=== PATIENT | female | born 1985 | race Caucasian/White ===

== ENCOUNTER 2019-09-20 16:47 | Emergency (ER) | payer MEDICAID ==
[~2019-09-20] VITALS: Ht 152.4 cm; Wt 55.8 kg
[2019-09-20 16:58] VITALS: BP_SYST 108
--- NOTE | 2019-09-20 17:47 | NUR ---
Patient to ER bed 03 to gown for evaluation. Side rails up.
--- NOTE | 2019-09-20 17:47 | NUR ---
Grey simmons in [facility] - 09/20/19 at 1747 by [email or web address] Patient to [place] [id number] to constantine for evaluation. Side rails up.
--- NOTE | 2019-09-20 18:20 | NUR ---
ER at bedside examining patient.
[2019-09-20] MEDS ORDERED: ONDANSETRON HCL 4 MG/2 ML VIAL IVP ONE (18:30)
[2019-09-20] MEDS ORDERED: KETOROLAC TROMETHAMINE 30 MG VIAL IVP ONE (18:30)
[2019-09-20 18:39] LABS: BASOPHILS # (AUTO) 0.1 K/uL (0.0-0.2); BASOPHILS % (AUTO) 0.4 % (0.0-2.0); EOSINOPHILS % (AUTO) 0.1 % (0.0-4.0); HEMATOCRIT 31.9 % (36-48); HEMOGLOBIN 10.1 g/dL (12.0-16.0); LYMPHOCYTES # (AUTO) 1.5 K/uL (1.0-5.5); LYMPHOCYTES % (AUTO) 9.5 % (20.5-51.5); MEAN CORPUSCULAR HEMOGLOBIN 22 pg (27-31); MEAN CORPUSCULAR HGB CONC 32 % (32-36); MEAN CORPUSCULAR VOLUME 71 fL (79.0-98.0); MONOCYTES # (AUTO) 0.4 K/uL (0.0-1.0); MONOCYTES % (AUTO) 2.7 % (1.7-9.3); NEUTROPHILS # (AUTO) 13.4 K/uL (1.8-7.7); NEUTROPHILS % (AUTO) 87.3 % (40.0-70.0); RED BLOOD CELL COUNT(AUTO) 4.51 MIL/uL (4.2-6.2); RED CELL DISTRIBUTION WIDTH 17.6 % (9.0-15.0); WHITE BLOOD COUNT (AUTO) 15.4 K/uL (4.8-10.8)
--- NOTE | 2019-09-20 18:40 | NUR ---
# 20 gauge angiocath placed to laC. Use of asceptic technique. Opsite placed over site. Blood return noted. Blood for lab drawn from site. Flushed with 10 cc of normal saline. No evidence of infiltration noted. Patient tolerated well.
[2019-09-20 18:47] LABS: CALCIUM 8.3 mg/dL (8.4-11.0); CREATININE 0.5 mg/dL (0.55-1.30)
[2019-09-20 18:53] LABS: ALBUMIN 3.4 g/dL (3.4-4.8); TOTAL BILIRUBIN 1.1 mg/dL (0.0-1.0)
--- NOTE | 2019-09-20 18:55 | NUR ---
MEDICATED THE PT W/ TORADOL AND ZOFRAN PER MD ORDER. WILL REASSESS
[2019-09-20 18:57] LABS: POTASSIUM 2.9 mmol/L (3.5-5.1)
[2019-09-20] MEDS ORDERED: POTASSIUM CHLORIDE 20 MEQ TAB.PRT.SR PO ONE (19:00)
[2019-09-20] MEDS ORDERED: NACL 0.9% 1,000 ML IV ONE (19:00)
[2019-09-20 19:13] LABS: PLATELET COUNT (AUTO) 510 K/uL (130-430)
--- NOTE | 2019-09-20 19:15 | NUR ---
CURRENTLY INFUSING ns 1L PER md ORDER.
--- NOTE | 2019-09-20 19:20 | NUR ---
CARE ENDORSED TO ISATU COURTNEY.
--- NOTE | 2019-09-20 19:22 | NUR ---
kDUR 40MeQ GIVEN FOR k OF 2.9
--- NOTE | 2019-09-20 20:15 | NUR ---
Pt BIB family to ED C/O gradual onset, intermittent vomiting. This morning, symptoms were associated with nonbloody diarrhea and mild RUQ abdominal pain. Patient is not able to keep PO intake down VSS no s/s of acute distress Resting on gurney rails up
[2019-09-20 20:30] VITALS: BP_SYST 108
--- NOTE | 2019-09-20 20:30 | NUR ---
Patient given written and verbal discharge instructions and verbalizes understanding. ER MD discussed with patient the results and treatment provided. Patient in stable condition. ID arm band removed. IV catheter removed intact and dressing applied, no active bleeding. Rx of Zofran, Lomotil given. Patient educated on pain management and to follow up with PMD. Pain Scale 0/10 Opportunity for questions provided and answered. Medication side effect fact sheet provided.
== END 2019-09-20 20:30 | disposition home or self-care (01) ==
LOC: SED 16:47
DX: R10.11 Right upper quadrant pain (principal); E87.6 Hypokalemia; R11.10 Vomiting, unspecified; R19.7 Diarrhea, unspecified; Z98.51 Tubal ligation status
CPT/HCPCS: 36415; 80053; 83690; 85025; 96361; 96374; 96375; 99283; J1885; J2405; J7030

== ENCOUNTER 2020-02-14 14:35 | Emergency (ER) | payer OTHER, MEDICAID ==
[~2020-02-14] VITALS: Ht 152.4 cm; Wt 58.1 kg
[2020-02-14 15:01] VITALS: BP_SYST 110
--- NOTE | 2020-02-14 15:07 | NUR ---
Patient to ER bed 2 to gown for evaluation. Side rails up. Report given to ROZ Amezcua.
--- NOTE | 2020-02-14 15:15 | NUR ---
ER at bedside examining patient.
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
[2020-02-14] MEDS ORDERED: KETOROLAC TROMETHAMINE 60 MG/2 ML VIAL IM ONE (16:00)
--- NOTE | 2020-02-14 16:00 | NUR ---
Medicated the pt w/ Toradol. Will reassess
[2020-02-14 16:04] VITALS: BP_SYST 110
--- NOTE | 2020-02-14 16:07 | NUR ---
Patient given written and verbal discharge instructions and verbalizes understanding. ER MD discussed with patient the results and treatment provided. Patient in stable condition. ID arm band removed. Rx of Motrin given. Patient educated on pain management and to follow up with PMD. Pain Scale 3/10. Opportunity for questions provided and answered. Medication side effect fact sheet provided.
== END 2020-02-14 16:04 | disposition home or self-care (01) ==
LOC: SED 14:35
DX: R51 Headache (principal); V49.49XA Driver injured in collision with other motor vehicles in traffic accident, initial encounter; Y93.89 Activity, other specified; Y92.413 State road as the place of occurrence of the external cause; Y99.8 Other external cause status
CPT/HCPCS: 96372; 99283; J1885

== ENCOUNTER 2020-03-05 11:03 | Emergency (ER) | payer MEDICAID, OTHER ==
[~2020-03-05] VITALS: Ht 152.4 cm; Wt 56.2 kg
[2020-03-05 11:17] VITALS: BP_SYST 116
--- NOTE | 2020-03-05 11:23 | NUR ---
PLACED IN [facility]ALLW[facility]. DR. FERNANDO EXAMINING PT
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
[2020-03-05] MEDS ORDERED: DIPHENHYDRAMINE INJ 50 MG/ML VIAL IVP ONE (11:45)
[2020-03-05] MEDS ORDERED: KETOROLAC TROMETHAMINE 30 MG VIAL IVP ONE (11:45)
[2020-03-05] MEDS ORDERED: ONDANSETRON HCL 4 MG/2 ML VIAL IVP ONE (13:00)
[2020-03-05] MEDS ORDERED: MORPHINE 4 MG/ML INJ. SYRINGE IVP ONE (13:00)
[2020-03-05 14:00] VITALS: BP_SYST 121
--- NOTE | 2020-03-05 14:00 | NUR ---
Patient given written and verbal discharge instructions and verbalizes understanding. ER MD discussed with patient the results and treatment provided. Patient in stable condition. ID arm band removed. IV catheter removed intact and dressing applied, no active bleeding. Rx of TYLNOL, ZOFRAN given. Patient educated on pain management and to follow up with PMD. Pain Scale 0/10 Opportunity for questions provided and answered. Medication side effect fact sheet provided.
== END 2020-03-05 14:00 | disposition home or self-care (01) ==
LOC: SED 11:03
DX: S13.4XXA Sprain of ligaments of cervical spine, initial encounter (principal); R51 Headache; V49.40XA Driver injured in collision with unspecified motor vehicles in traffic accident, initial encounter; Y93.89 Activity, other specified; Y92.89 Other specified places as the place of occurrence of the external cause; Y99.8 Other external cause status
CPT/HCPCS: 72125; 81025; 96374; 96375; 99284; J1200; J1885; J2270; J2405

== ENCOUNTER 2020-04-03 15:47 | Emergency (ER) | payer MEDICAID, SELFPAY ==
[~2020-04-03] VITALS: Ht 152.4 cm; Wt 56.2 kg
[2020-04-03 15:58] VITALS: BP_SYST 103
[2020-04-03] MEDS ORDERED: ONDANSETRON 4 MG ODT TAB PO ONE (16:45)
[2020-04-03] MEDS ORDERED: ACETAMINOPHEN 500 MG TABLET PO ONE (16:45)
[2020-04-03 17:04] LABS: BILIRUBIN,URINE NEGATIVE (NEGATIVE); BLOOD, URINE NEGATIVE (NEGATIVE); COLOR,URINE YELLOW (YELLOW); GLUCOSE,URINE NEGATIVE (NEGATIVE); KETONES,URINE NEGATIVE (NEGATIVE); LEUKOCYTE ESTERASE ,URINE NEGATIVE (NEGATIVE); NITRITE, URINE NEGATIVE (NEGATIVE); PROTEIN URINE NEGATIVE (NEGATIVE)
[2020-04-03 17:11] LABS: CLARITY/URINE SLIGHTLY HAZY (CLEAR)
[2020-04-03 17:15] VITALS: BP_SYST 110
== END 2020-04-03 17:15 | disposition home or self-care (01) ==
LOC: SED 15:47
DX: R11.2 Nausea with vomiting, unspecified (principal); M79.18 Myalgia, other site; Z20.828 Contact with and (suspected) exposure to other viral communicable diseases
CPT/HCPCS: 81000; 81025; 99283; C9803; Q0162; U0003; 81003

== ENCOUNTER 2020-05-13 18:03 | Emergency (ER) | payer MEDICAID, SELFPAY ==
[~2020-05-13] VITALS: Ht 152.4 cm; Wt 54.4 kg
[2020-05-13 18:09] VITALS: BP_SYST 114
[2020-05-13] MEDS ORDERED: NACL 0.9% 1,000 ML IV ONE (18:30)
[2020-05-13] MEDS ORDERED: KETOROLAC TROMETHAMINE 30 MG VIAL IVP ONE (18:30)
[2020-05-13 18:53] LABS: BASOPHILS # (AUTO) 0.1 K/uL (0.0-0.2); BASOPHILS % (AUTO) 0.7 % (0.0-2.0); EOSINOPHILS # (AUTO) 0.3 K/uL (0.0-0.4); EOSINOPHILS % (AUTO) 4.1 % (0.0-4.0); HEMATOCRIT 34.2 % (36-48); HEMOGLOBIN 10.6 g/dL (12.0-16.0); LYMPHOCYTES # (AUTO) 1.6 K/uL (1.0-5.5); MEAN CORPUSCULAR HEMOGLOBIN 22 pg (27-31); MEAN CORPUSCULAR HGB CONC 31 % (32-36); MEAN CORPUSCULAR VOLUME 70 fL (79.0-98.0); MONOCYTES # (AUTO) 0.6 K/uL (0.0-1.0); MONOCYTES % (AUTO) 7.8 % (1.7-9.3); NEUTROPHILS # (AUTO) 4.7 K/uL (1.8-7.7); NEUTROPHILS % (AUTO) 65.4 % (40.0-70.0); PLATELET COUNT (AUTO) 433 K/uL (130-430); RED BLOOD CELL COUNT(AUTO) 4.91 MIL/uL (4.2-6.2); WHITE BLOOD COUNT (AUTO) 7.2 K/uL (4.8-10.8)
[2020-05-13 18:54] LABS: CREATININE 0.64 mg/dL (0.55-1.30)
[2020-05-13 19:05] LABS: ALBUMIN 3.5 g/dL (3.4-4.8); TOTAL BILIRUBIN 0.6 mg/dL (0.0-1.0)
[2020-05-13 19:15] LABS: C-REACTIVE PROTEIN QUANT 1.4 mg/dL (0-0.5)
[2020-05-13] MEDS ORDERED: ONDANSETRON HCL 4 MG/2 ML VIAL IVP ONE (20:00)
[2020-05-13] MEDS ORDERED: MORPHINE 4 MG/ML INJ. SYRINGE IVP ONE (20:00)
[2020-05-13] MEDS ORDERED: ONDANSETRON HCL 4 MG/2 ML VIAL ONE (20:10)
[2020-05-13] MEDS ORDERED: MORPHINE 4 MG/ML INJ. SYRINGE ONE (20:10)
[2020-05-13 20:29] VITALS: BP_SYST 120
== END 2020-05-13 20:29 | disposition home or self-care (01) ==
LOC: SED 18:03
DX: J98.01 Acute bronchospasm (principal); G44.209 Tension-type headache, unspecified, not intractable; B34.9 Viral infection, unspecified; Z20.828 Contact with and (suspected) exposure to other viral communicable diseases
CPT/HCPCS: 36415; 71045; 80053; 81002; 81025; 82728; 83615; 85025; 86140; 87426; 96361; 96374; 96375; 99284; J1885; J2270; J2405; J7030

== ENCOUNTER 2020-06-13 22:10 | Emergency (ER) | payer MEDICAID, SELFPAY ==
[~2020-06-13] VITALS: Ht 152.4 cm; Wt 56.7 kg
[2020-06-13 22:18] VITALS: BP_SYST 111
[2020-06-14] MEDS ORDERED: HYDROcodone/ACETAMIN 5-325 MG TAB (NORCO/ VICODIN) PO ONE
[2020-06-14] MEDS ORDERED: ONDANSETRON 4 MG ODT TAB PO ONE (00:15)
[2020-06-14] MEDS ORDERED: ONDANSETRON 4 MG ODT TAB ONE (00:25)
[2020-06-14 00:51] VITALS: BP_SYST 122
== END 2020-06-14 00:51 | disposition home or self-care (01) ==
LOC: SED 22:10
DX: S09.90XA Unspecified injury of head, initial encounter (principal); W01.198A Fall on same level from slipping, tripping and stumbling with subsequent striking against other object, initial encounter; Y93.89 Activity, other specified; Y92.89 Other specified places as the place of occurrence of the external cause; Y99.8 Other external cause status
CPT/HCPCS: 70450; 70486; 99285; Q0162

== ENCOUNTER 2020-11-03 20:17 | Emergency (ER) | payer MEDICAID ==
[~2020-11-03] VITALS: Ht 152.4 cm; Wt 56.7 kg
[2020-11-03 20:26] VITALS: BP_SYST 132
[2020-11-03] MEDS ORDERED: HYDROcodone/ACETAMIN 10-325 MG TAB PO ONE (20:45)
[2020-11-03] MEDS ORDERED: KETOROLAC TROMETHAMINE 60 MG/2 ML VIAL IM ONE (20:45)
[2020-11-03] MEDS ORDERED: MORPHINE SULFATE 10 MG/ML VIAL IM ONE (21:15)
[2020-11-03] MEDS ORDERED: IBUP-1969 PO (21:19)
[2020-11-03] MEDS ORDERED: HYDR-4274 PO (21:19)
[2020-11-03 22:11] VITALS: BP_SYST 128
== END 2020-11-03 22:11 | disposition home or self-care (01) ==
LOC: SED 20:17
DX: S90.511A Abrasion, right ankle, initial encounter (principal); G43.909 Migraine, unspecified, not intractable, without status migrainosus; Z79.899 Other long term (current) drug therapy; W22.8XXA Striking against or struck by other objects, initial encounter; Y93.89 Activity, other specified; Y92.89 Other specified places as the place of occurrence of the external cause; Y99.8 Other external cause status
CPT/HCPCS: 29515; 73610; 81025; 96372; 99284; J1885; J2270

== ENCOUNTER 2021-07-29 18:56 | Emergency (ER) | payer MEDICAID ==
[~2021-07-29] VITALS: Ht 152.4 cm; Wt 54.9 kg
[~2021-07-29 18:56] MED LIST: HYDR-4274 PO; IBUP-1969 PO
[2021-07-29 19:20] VITALS: BP_SYST 101
--- NOTE | 2021-07-29 19:24 | NUR ---
TO WAIT ROOM
--- NOTE | 2021-07-30 00:32 | NUR ---
PT LWBS [id number]. PATIENT WAS PLACED IN WR STABLE.
== END 2021-07-30 00:32 | disposition left against medical advice (07) ==
LOC: SED 18:56
DX: R51.9 Headache, unspecified (principal); Z53.21 Procedure and treatment not carried out due to patient leaving prior to being seen by health care provider

== ENCOUNTER 2022-08-27 17:35 | Emergency (ER) | payer MEDICAID ==
[~2022-08-27] VITALS: Ht 152.4 cm; Wt 57.2 kg
[2022-08-27 17:38] VITALS: BP_SYST 119
[2022-08-27] MEDS ORDERED: KETOROLAC TROMETHAMINE 15 MG VIAL IVP ONE (18:30)
[2022-08-27] MEDS ORDERED: ONDANSETRON HCL 4 MG/2 ML VIAL IVP ONE (18:45)
[2022-08-27 20:11] LABS: BASOPHILS # (AUTO) 0.1 K/uL (0.0-0.2); BASOPHILS % (AUTO) 0.9 % (0.0-2.0); EOSINOPHILS # (AUTO) 0.1 K/uL (0.0-0.4); EOSINOPHILS % (AUTO) 2.1 % (0.0-4.0); HEMATOCRIT 30.3 % (36-48); HEMOGLOBIN 9.3 g/dL (12.0-16.0); LYMPHOCYTES # (AUTO) 2.4 K/uL (1.0-5.5); LYMPHOCYTES % (AUTO) 38.1 % (20.5-51.5); MEAN CORPUSCULAR HEMOGLOBIN 20 pg (27-31); MEAN CORPUSCULAR HGB CONC 31 % (32-36); MEAN CORPUSCULAR VOLUME 66 fL (79.0-98.0); MONOCYTES # (AUTO) 0.4 K/uL (0.0-1.0); NEUTROPHILS # (AUTO) 3.3 K/uL (1.8-7.7); NEUTROPHILS % (AUTO) 51.9 % (40.0-70.0); PLATELET COUNT (AUTO) 424 K/uL (130-430); RED BLOOD CELL COUNT(AUTO) 4.59 MIL/uL (4.2-6.2); RED CELL DISTRIBUTION WIDTH 19.1 % (9.0-15.0); WHITE BLOOD COUNT (AUTO) 6.3 K/uL (4.8-10.8)
[2022-08-27 21:43] LABS: BILIRUBIN,URINE NEGATIVE (NEGATIVE); BLOOD, URINE NEGATIVE (NEGATIVE); CLARITY/URINE CLEAR (CLEAR); COLOR,URINE YELLOW (YELLOW); GLUCOSE,URINE NEGATIVE (NEGATIVE); KETONES,URINE TRACE (NEGATIVE); LEUKOCYTE ESTERASE ,URINE NEGATIVE (NEGATIVE); NITRITE, URINE NEGATIVE (NEGATIVE); PH,URINE 6.5 (5.0-8.0); PROTEIN URINE NEGATIVE (NEGATIVE); UROBILINOGEN,URINE 0.2 (0.2-1.0)
[2022-08-27 21:54] LABS: ANION GAP 9 (5-15); CALCIUM 8.7 mg/dL (8.4-11.0); CHLORIDE 104 mmol/L (98-107); CREATININE 0.56 mg/dL (0.55-1.30); GLUCOSE 87 mg/dL (70-99); UREA NITROGEN, BLOOD 10 mg/dL (8-21)
[2022-08-27 22:05] LABS: GFR AFRICAN AMERICAN 157 mL/min (>90)
[2022-08-27 22:08] LABS: ALANINE AMINOTRANSFERASE 23 U/L (12-78); ALBUMIN 3.9 g/dL (3.4-4.8); ASPARTATE AMINOTRANSFERASE 13 U/L (10-37); LIPASE 125 U/L (73-393); TOTAL BILIRUBIN 0.6 mg/dL (0.0-1.0)
[2022-08-27] MEDS ORDERED: KETOROLAC TROMETHAMINE 15 MG VIAL ONE (22:34)
[2022-08-27] MEDS ORDERED: ONDANSETRON HCL 4 MG/2 ML VIAL ONE (22:34)
[2022-08-28 00:03] VITALS: BP_SYST 114
== END 2022-08-27 23:59 | disposition home or self-care (01) ==
LOC: SED 17:35
DX: K80.20 Calculus of gallbladder without cholecystitis without obstruction (principal); R07.9 Chest pain, unspecified; R06.00 Dyspnea, unspecified; R11.2 Nausea with vomiting, unspecified; J45.909 Unspecified asthma, uncomplicated; Z79.899 Other long term (current) drug therapy; Z20.822 Contact with and (suspected) exposure to COVID-19
CPT/HCPCS: 99285; 96374; 76705; 71045; 96375; 87426; 80053; 83880; 83690; 85025; 85379; 84484; 36415; 93005; 81025; 81003; 87804 ×2; J1885; J2405